=== PATIENT | male | born 1945 | race Caucasian/White ===

== ENCOUNTER 2020-12-03 07:15 | Day surgery (SDC) | payer MEDICARE, BC ==
[2020-11-26 15:15] LABS: BASOPHILS % (AUTO) 0.7 % (0-1); EOSINOPHILS # (AUTO) 0.2 X10'3 (0-0.9); EOSINOPHILS % (AUTO) 2.6 % (0-6); LYMPHOCYTES % (AUTO) 28.7 % (21-51); MEAN CORPUSCULAR HEMOGLOBIN 34.2 PG (27.0-31.0); MEAN CORPUSCULAR HGB CONC 33.7 g/dL (33.0-36.5); MEAN CORPUSCULAR VOLUME 101.6 FL (78-98); MEAN PLATELET VOLUME 8.7 FL (7.4-10.4); MONOCYTES # (AUTO) 0.4 X10'3 (0-0.9); MONOCYTES % (AUTO) 5.3 % (2-12); NEUTROPHILS # (AUTO) 4.4 X10'3 (1.8-7.7); NEUTROPHILS % (AUTO) 62.7 % (42-75); PRE OP HEMATOCRIT 42.2 % (42.0-52.0); PRE OP HEMOGLOBIN 14.2 g/dL (14.0-17.9); PRE OP PLATELET COUNT 239 X10'3 (140-440); RED BLOOD COUNT 4.15 X10'6 (4.70-6.10); RED CELL DISTRIBUTION WIDTH 13.9 % (11.5-14.5)
[2020-11-26 15:28] LABS: PRE OP INR 1.1 INR; PRE OP PROTIME 10.9 SECONDS (9.0-12.0)
[2020-11-26 15:38] LABS: ALBUMIN 3.8 G/DL (3.4-5.0); ALBUMIN/GLOBULIN RATIO 1.1 (1.1-1.5); ALKALINE PHOSPHATASE 85 IU/L (46-116); BLOOD UREA NITROGEN 27 MG/DL (7-18); CALCIUM 9.2 MG/DL (8.5-10.1); CHLORIDE 102 MMOL/L (99-107); CREATININE 1.04 MG/DL (0.60-1.10); PRE OP ALT 31 U/L (30-65); PRE OP ANION GAP 1 (8-16); PRE OP AST 23 U/L (10-37); PRE OP BILIRUB, TOTAL 0.6 MG/DL (0.0-1.0); PRE OP GLUCOSE 149 MG/DL (70-104); PRE OP POTASSIUM 3.4 MMOL/L (3.4-5.1); TOTAL PROTEIN 7.2 G/DL (6.4-8.2); eGFR 70 ML/MIN
[2020-11-26 15:44] LABS: PRE OP SODIUM 129 MMOL/L (135-145)
[2020-12-03] VITALS (18 sets, daily range): BP systolic 92–137; BP diastolic 42–86
[~2020-12-03] VITALS: Ht 170.2 cm; Wt 88.9 kg
[~2020-12-03 07:15] MED LIST: ALLO100T PO; ATOR40TA72 PO; CALC-995 PO; CYCL5TAB PO; DOCUMENT DATE & TIME OF BETA-BLOCKER PO ONE; ENAL20TA77 PO; HYDR12.55 PO; HYDROmorphone 1 mg/ml syringe IV PRN; HYDROmorphone inj. 0.5 MG/0.5 ML DISP.SYRIN IV PRN; MAGN500C16 PO; METO25TA6 PO; OMEP-50 PO; POTASIUM PO; acetaminophen 325mg tablet PO ONE; acetaminophen 325mg tablet PO PRN; bisacodyl 10mg suppository rectal RC PRN; ceFAZolin 2gm in dextrose, iso 50 ML IV ONE; celeCOXIB 100mg capsule PO ONE; diphenhydrAMINE 25mg capsule PO PRN; famotidine 20mg tablet PO ONE; gabapentin 300mg capsule PO ONE; magnesium hydroxide 30ml (MOM) UD suspension PO PRN; metoclopramide 5 mg/ml inj IV ONE; ondansetron/PF 4mg/2ml inj IV PRN; oxyCODONE SR 10mg (sust. release) tab -2 tabs (20mg) PO ONE; oxyCODONE/APAP 10/325mg tablet PO PRN; ringers solution, lacted 1,000 ML IV SCH; tranexamic acid 1gm/0.7% sal. 100 ML IV ONE; vancomycin 1,500 MG in NS 300ml IV soln IV ONE
[2020-12-03] MEDS ORDERED: magnesium oxide 400mg tablet PO SCH ×2 (08:00→21:00)
[2020-12-03] MEDS: gabapentin 300mg capsule PO SCH ×3 (08:00→20:46)
[2020-12-03] MEDS ORDERED: ROPIVAcaine 0.2% (10 MG/5 ML) BOLUS INJECTION ADDCANAL PRN (09:05)
[2020-12-03] MEDS ORDERED: labetalol 20mg/4ml (5mg/ml) syringe IV PRN (09:05)
[2020-12-03] MEDS ORDERED: morphine 2 MG/ML inj. syringe IV PRN (09:05)
[2020-12-03] MEDS ORDERED: ondansetron/PF 4mg/2ml inj IV PRN (09:05)
[2020-12-03] MEDS ORDERED: morphine 4 MG/ML inj SYRINge IV PRN (09:05)
[2020-12-03] MEDS ORDERED: ringers solution, lacted 1,000 ML IV SCH (09:05)
[2020-12-03] MEDS ORDERED: hydrALAZINE 20mg/ml inj. IV PRN (09:05)
[2020-12-03] MEDS ORDERED: proCHLORperazine 10 MG/2 ml inj IV PRN (09:05)
[2020-12-03] MEDS ORDERED: meperidine/PF 25mg/ml syringe IV PRN ×3 (09:05)
[2020-12-03] MEDS ORDERED: acetaminophen 1,000mg/100ml IV 100 ML IV PRN (09:05)
[2020-12-03 09:26] LABS: ISTAT HGB 13.3 g/dl (14.0-18.0); ISTAT IONIZED CALCIUM 1.23 mmol/L (1.03-1.32); ISTAT K 3.5 mmol/L (3.5-5.1)
[2020-12-03] MEDS ORDERED: ROPIVAcaine 0.5% (5mg/ml) 30ml vial ONE ×2 (10:31→12:00)
[2020-12-03] MEDS ORDERED: ketorolac trometh. 30mg/ml inj. ONE (10:31)
[2020-12-03] MEDS ORDERED: epiNEPHrine 1 mg/ml inj ONE (10:32)
[2020-12-03] MEDS ORDERED: vancomycin 1,000mg inj ONE ×2 (10:32→12:40)
[2020-12-03] MEDS ORDERED: cloNIDine hcl/PF 100mcg/ml inj ONE (10:32)
[2020-12-03] MEDS ORDERED: fentaNYL/PF 50MCG/1 ML 2ML syringe ONE (10:46)
[2020-12-03] MEDS ORDERED: ROPIVAcaine 0.2%/PF PUMP/bolus 545 ML ADDCANAL SCH (11:00)
[2020-12-03] MEDS ORDERED: MIDAZolam 1 MG/ML 5ML VIAL ONE (11:10)
[2020-12-03] MEDS ORDERED: propofol inj 20 ML IV ONE ×2 (11:10)
[2020-12-03] MEDS ORDERED: ePHEDrine 50MG/ML INJ. ONE (11:24)
--- NOTE | 2020-12-03 12:50 | NUR ---
ADMITTED TO PACU FROM OR ACCOMPANIED BY ANESTHESIA. INTIAL PHYSICAL ASSESSMENT DONE AND RECORDED. REPORT RECEIVED FROM ANESTHESIA.
--- NOTE | 2020-12-03 13:50 | NUR ---
PACU DISCHARGE CRITERIA MET, REPORT GIVEN TO FLOOR. DENIES PAIN OR DISCOMFORT. PT IS STABLE AND ADEQUATELY RECOVERED FROM ANESTHESIA. PT HAS STABLE AIRWAY PATENCY, RESPIRATORY FUNCTION TO INCLUDE RESPIRATORY RATE AND O2 SAT. HEART RATE, BLOOD PRESSURE STABLE AND HYDRATION ADEQUATE. MENTAL STATUS IS APPROPRIATE. PAIN AND NAUSEA CONTROLLED. REFER TO PACU SPREADSHEET FOR VITAL SIGNS.
[2020-12-03] MEDS ORDERED: tranexamic acid 1gm/0.7% sal. 100 ML IV ONE (14:00)
--- NOTE | 2020-12-03 14:20 | NUR ---
Patient in room 4024a. Patient is alert and oriented and denies any pain or discomfort at this time. Right knee with wrap and powder pack on. ONQ and miri dressing cdi. ONQ set at 4ml/hr patient reports no pain. Oriented patient to room and call light placed within reach. Bed low and locked.
[2020-12-03] MEDS: potassium cl 20mEq in 1/2 NS 1,000 ML IV SCH ×3 (14:35→22:35)
[2020-12-03] MEDS: aspirin 325mg tablet PO SCH (15:03)
[2020-12-03] MEDS ORDERED: cefazolin/dext.iso 2gm/100ml 100 ML IV SCH (16:00)
[2020-12-03] MEDS: cefazolin/dext.iso 2gm/50ml 50 ML IV SCH (16:40)
--- NOTE | 2020-12-03 18:16 | NUR ---
Problems reprioritized. Patient report given, questions answered & plan of care reviewed with BEBO Ovalle.
[2020-12-03] MEDS: lisinopril 20mg tablet PO SCH (20:00)
[2020-12-03] MEDS: ascorbic acid 500mg tablet PO SCH (20:46)
[2020-12-03] MEDS: allopurinol 100mg tablet PO SCH (20:47)
[2020-12-03] MEDS: metoprolol tartrate 25mg tablet PO SCH (20:48)
[2020-12-03] MEDS ORDERED: sennosides 8.6mg tablet PO SCH (21:00)
[2020-12-03] MEDS ORDERED: atorvastatin 20mg tablet PO SCH (21:00)
[2020-12-03] MEDS: oxyCODONE/APAP 10/325mg tablet PO PRN (21:09)
[2020-12-04] MEDS: cefazolin/dext.iso 2gm/50ml 50 ML IV SCH (00:04)
[2020-12-04 02:40] VITALS: BP 118/63
[2020-12-04] MEDS: potassium cl 20mEq in 1/2 NS 1,000 ML IV SCH (04:23)
[2020-12-04] MEDS: oxyCODONE/APAP 10/325mg tablet PO PRN ×2 (05:27→10:07)
[2020-12-04 05:49] LABS: BASOPHILS % (AUTO) 0.6 % (0-1); EOSINOPHILS # (AUTO) 0.3 X10'3 (0-0.9); EOSINOPHILS % (AUTO) 3.9 % (0-6); HEMATOCRIT 33.2 % (42.0-52.0); HEMOGLOBIN 11.5 g/dl (14.0-17.9); LYMPHOCYTES # (AUTO) 1.7 X10'3 (1.1-4.8); LYMPHOCYTES % (AUTO) 22.2 % (21-51); MEAN CORPUSCULAR HEMOGLOBIN 35.1 PG (27.0-31.0); MEAN CORPUSCULAR HGB CONC 34.6 g/dL (33.0-36.5); MEAN CORPUSCULAR VOLUME 101.6 FL (78-98); MEAN PLATELET VOLUME 8.4 FL (7.4-10.4); MONOCYTES # (AUTO) 0.6 X10'3 (0-0.9); MONOCYTES % (AUTO) 7.4 % (2-12); NEUTROPHILS # (AUTO) 5.1 X10'3 (1.8-7.7); NEUTROPHILS % (AUTO) 65.9 % (42-75); PLATELET COUNT 183 X10'3 (140-440); RED BLOOD COUNT 3.26 X10'6 (4.70-6.10); RED CELL DISTRIBUTION WIDTH 13.5 % (11.5-14.5); WHITE BLOOD COUNT 7.7 X10'3 (4.5-11.0)
[2020-12-04 06:04] LABS: ANION GAP 8 (8-16); CHLORIDE 104 MMOL/L (99-107); POTASSIUM 3.6 MMOL/L (3.5-5.1); SODIUM 139 MMOL/L (135-145); TOTAL CARBON DIOXIDE 26.9 MMOL/L (24-32)
[2020-12-04 06:25] VITALS: BP 113/68
--- NOTE | 2020-12-04 06:26 | NUR ---
Patient in room ORTHO 4024. I have received report from Karri LAGUNAS and had the opportunity to ask questions and assume patient care.
--- NOTE | 2020-12-04 06:35 | NUR ---
reported to days. noted pt resting w/o distress. walked with PT. anticipates going home
[2020-12-04] MEDS: gabapentin 300mg capsule PO SCH ×2 (07:03→12:42)
[2020-12-04] MEDS: aspirin 325mg tablet PO SCH (07:03)
[2020-12-04] MEDS: ascorbic acid 500mg tablet PO SCH (07:03)
[2020-12-04] MEDS: allopurinol 100mg tablet PO SCH (07:03)
[2020-12-04] MEDS: lisinopril 20mg tablet PO SCH (07:04)
[2020-12-04] MEDS: metoprolol tartrate 25mg tablet PO SCH (07:04)
[2020-12-04] MEDS ORDERED: pantoprazole 40mg Tablet.DR PO SCH (08:00)
[2020-12-04] MEDS ORDERED: HYDROchlorothiazide 12.5mg capsule PO SCH (08:00)
[2020-12-04] MEDS ORDERED: multivitamins, therapeutics tablet PO SCH (08:00)
[2020-12-04 10:48] VITALS: BP 127/63
[2020-12-04] MEDS ORDERED: GABA-530 PO (11:27)
[2020-12-04] MEDS ORDERED: ASPI-1 PO (11:49)
[2020-12-04] MEDS ORDERED: CELE100C98 PO (11:49)
--- NOTE | 2020-12-04 14:14 | NUR ---
Patient discharged to home with . Discharge instructions given to both the patient and his regarding follow up, medications and s/s of complications. Both verbalized understanding. Pre medicated for 2 hour [address] ride with 2 percocets, patient voided prior to dc as well. Discharged via wheelchair to private vehicle in stable condition.
[2020-12-04] MEDS ORDERED: celeCOXIB 100mg capsule PO SCH (20:00)
== END 2020-12-04 13:30 | disposition home or self-care (01) ==
LOC: ORTHO 4S 07:15 → PAS 07:15
PROVIDERS: ATTEND Orthopaedic Surgery
DX: M17.11 Unilateral primary osteoarthritis, right knee (principal); Z01.812 Encounter for preprocedural laboratory examination; M25.561 Pain in right knee; I10 Essential (primary) hypertension; G47.33 Obstructive sleep apnea (adult) (pediatric); E66.9 Obesity, unspecified; Z87.891 Personal history of nicotine dependence; K21.9 Gastro-esophageal reflux disease without esophagitis; G89.18 Other acute postprocedural pain
CPT/HCPCS: 27447; 36415; 64447; 73560; 80047; 80051; 80053; 85025; 85610; 85730; 86885; 86900; 86901; 87081; 97110; 97161; 97530; C1713; C1776; J0171; J0735; J1885; J2250; J2704; J2765; J2795; J3010; J3370; J7040; J7120; A4215; A7000; G0378; J3480